=== PATIENT | male | born 1985 | race African-American/Black ===

== ENCOUNTER 2024-10-04 17:51 | Inpatient (IN) | payer OTHER ==
[~2024-10-04] VITALS: Ht 180.3 cm; Wt 77.3 kg
[2024-10-04] MEDS ORDERED: NAPR-1025 PO (19:55)
[2024-10-04] MEDS ORDERED: CEPH250S56 PO (19:55)
[2024-10-04] MEDS ORDERED: [UNRECOGNIZED DRUG - CODE] TP (19:55)
[2024-10-04] MEDS ORDERED: SENN-376 PO (19:55)
[2024-10-04] MEDS ORDERED: ACET-2247 PO (19:55)
[2024-10-04 22:04] LABS: BASOPHILS % (AUTO) 1.2 % (0.0-2.0); EOSINOPHILS % (AUTO) 5.5 % (1.0-6.0); HEMATOCRIT 45.3 % (41-53); HEMOGLOBIN 14.7 g/dL (13.5-17.5); LYMPHOCYTES # (AUTO) 2.4 K/uL (1.0-4.8); MEAN CORPUSCULAR HEMOGLOBIN 29.8 pg (26.0-34.0); MEAN CORPUSCULAR HGB CONC 32.5 G/dL (31.0-37.0); MEAN CORPUSCULAR VOLUME 92 fL (80-100); MONOCYTES # (AUTO) 0.8 K/uL (0.1-1.0); MONOCYTES % (AUTO) 10.3 % (2.0-9.0); NEUTROPHILS # (AUTO) 4.2 K/uL (1.8-7.7); PLATELET COUNT (AUTO) 292 K/uL (150-450); RED BLOOD CELL COUNT(AUTO) 4.95 MIL/uL (4.50-5.90); RED CELL DISTRIBUTION WIDTH 13.1 % (11.5-14.5); WHITE BLOOD COUNT (AUTO) 7.9 K/uL (4.5-11.0)
[2024-10-04 22:26] LABS: RBC MORPHOLOGY COMMENT NORMAL RBC MORPH
[2024-10-04 22:51] LABS: ANION GAP 3 mmol/L (8-16); CALCIUM, TOTAL 9.2 mg/dL (8.8-10.5); CARBON DIOXIDE 33 mmol/L (22-29); CHLORIDE 102 mmol/L (98-107); CREATININE 0.84 mg/dL (0.60-1.30); GLOMERULAR FILTR. RATE CALC > 60 mL/min (>60); GLUCOSE,RANDOM 66 mg/dL (70-110); POTASSIUM 4.6 mmol/L (3.5-5.1); SODIUM SERUM 138 mmol/L (136-145); UREA NITROGEN, BLOOD 14 mg/dL (7-18)
[2024-10-04] MEDS ORDERED: ONDANSETRON HCL 4 MG/2 ML VIAL IVP PRN (23:15)
[2024-10-05] MEDS: CLINDAMYCIN 600 MG/D5% WATER 50 ML IV ONE (00:08)
[2024-10-05] MEDS: KETOROLAC TROMETHAMINE 30 MG/ML VIAL IVP ONE (00:08)
[2024-10-05] MEDS: ACETAMINOPHEN 500 MG TABLET PO ONE (00:08)
[2024-10-05] MEDS: VANCOMYCIN 1.25 GM/WATER(PEG) 250 ML IV ONE (00:45)
[2024-10-05] MEDS: HEPARIN SODIUM,PORCINE 5,000 UNITS/ML VIAL SQ SCH (00:55)
[2024-10-05] MEDS ORDERED: SODIUM CHLORIDE 0.9% 500 ML IV ONE (02:47)
[2024-10-05 03:05] VITALS: BP 122/56; PULSE 72; RESP 18; TEMP 97.8; O2SAT 98
[2024-10-05 06:49] LABS: ANION GAP 5 mmol/L (8-16); CARBON DIOXIDE 29 mmol/L (22-29); CHLORIDE 103 mmol/L (98-107); CREATININE 0.83 mg/dL (0.60-1.30); GLOMERULAR FILTR. RATE CALC > 60 mL/min (>60); GLUCOSE,RANDOM 98 mg/dL (70-110); POTASSIUM 4.2 mmol/L (3.5-5.1); SODIUM SERUM 137 mmol/L (136-145); UREA NITROGEN, BLOOD 15 mg/dL (7-18)
[2024-10-05 07:15] LABS: BASOPHILS % (AUTO) 2.4 % (0.0-2.0); EOSINOPHILS % (AUTO) 6.9 % (1.0-6.0); HEMATOCRIT 42.6 % (41-53); HEMOGLOBIN 13.9 g/dL (13.5-17.5); LYMPHOCYTES # (AUTO) 1.8 K/uL (1.0-4.8); LYMPHOCYTES % (AUTO) 28.5 % (22.0-44.0); MEAN CORPUSCULAR HEMOGLOBIN 30.1 pg (26.0-34.0); MEAN CORPUSCULAR HGB CONC 32.7 G/dL (31.0-37.0); MEAN CORPUSCULAR VOLUME 92 fL (80-100); MONOCYTES # (AUTO) 0.5 K/uL (0.1-1.0); MONOCYTES % (AUTO) 8.3 % (2.0-9.0); NEUTROPHILS # (AUTO) 3.4 K/uL (1.8-7.7); NEUTROPHILS % (AUTO) 53.9 % (40.0-70.0); PLATELET COUNT (AUTO) 299 K/uL (150-450); RED BLOOD CELL COUNT(AUTO) 4.63 MIL/uL (4.50-5.90); RED CELL DISTRIBUTION WIDTH 12.9 % (11.5-14.5); WHITE BLOOD COUNT (AUTO) 6.3 K/uL (4.5-11.0)
[2024-10-05 07:42] VITALS: BP 129/83; PULSE 72; RESP 20; TEMP 97.6; O2SAT 99
[2024-10-05] MEDS: VANCOMYCIN 1.25 GM/WATER(PEG) 250 ML IV SCH (09:05)
[2024-10-05] MEDS: DOCUSATE SODIUM 100 MG CAPSULE PO SCH (09:07)
[2024-10-05] MEDS: ACETAMINOPHEN/CODEINE 300-30 MG TABLET PO PRN (12:26)
[2024-10-05 12:50] LABS: URIC ACID 5.2 mg/dL (2.6-7.2)
[2024-10-05 19:55] VITALS: BP 114/71; PULSE 75; RESP 20; TEMP 97.5; O2SAT 97
[2024-10-05] MEDS ORDERED: SODIUM CHLORIDE 0.9% 100 ML ONE (21:13)
[2024-10-05] MEDS ORDERED: 0.9% SODIUM CHLORIDE 10 ML SYRINGE IVP ONE (21:13)
[2024-10-05] MEDS ORDERED: IOHEXOL 350 MG/ML 100 ML VIAL ONE (21:13)
[2024-10-06 05:57] VITALS: BP 111/71; PULSE 69; RESP 20; TEMP 97.5; O2SAT 98
[2024-10-06 07:12] LABS: ANION GAP 6 mmol/L (8-16); CALCIUM, TOTAL 9.1 mg/dL (8.8-10.5); CARBON DIOXIDE 29 mmol/L (22-29); CHLORIDE 102 mmol/L (98-107); CREATININE 0.92 mg/dL (0.60-1.30); GLOMERULAR FILTR. RATE CALC > 60 mL/min (>60); GLUCOSE,RANDOM 85 mg/dL (70-110); POTASSIUM 4.3 mmol/L (3.5-5.1); SODIUM SERUM 137 mmol/L (136-145); UREA NITROGEN, BLOOD 12 mg/dL (7-18); VANCOMYCIN,RANDOM 13.8 mcg/mL (25.0-50.0)
[2024-10-06 08:00] VITALS: BP 107/66; PULSE 64; RESP 15; TEMP 97.9; O2SAT 100
[2024-10-06 19:44] VITALS: BP 117/70; PULSE 66; RESP 20; TEMP 98.2; O2SAT 98
[2024-10-06] MEDS: ACETAMINOPHEN 325 MG TABLET PO PRN (23:39)
[2024-10-07 04:58] VITALS: BP 114/78; PULSE 63; RESP 20; TEMP 98.1; O2SAT 100
[2024-10-07] MEDS ORDERED: FentaNYL CITRATE PF 100 MCG/2 ML VIAL ONE (07:00)
[2024-10-07] MEDS ORDERED: MIDAZOLAM HCL 2 MG/2 ML VIAL ONE (07:00)
[2024-10-07 07:15] LABS: ANION GAP 6 mmol/L (8-16); CARBON DIOXIDE 29 mmol/L (22-29); CHLORIDE 100 mmol/L (98-107); CREATININE 0.87 mg/dL (0.60-1.30); GLOMERULAR FILTR. RATE CALC > 60 mL/min (>60); GLUCOSE,RANDOM 95 mg/dL (70-110); SODIUM SERUM 135 mmol/L (136-145); UREA NITROGEN, BLOOD 12 mg/dL (7-18)
[2024-10-07 07:35] LABS: VANCOMYCIN,RANDOM 10.6 mcg/mL (25.0-50.0)
[2024-10-07 08:03] VITALS: BP 108/67; PULSE 62; RESP 18; TEMP 97.9; O2SAT 100
[2024-10-07] MEDS: VANCOMYCIN 1GM/WATER(PEG/NADA) 200 ML IV SCH (09:54)
[2024-10-07 20:19] VITALS: BP 113/71; PULSE 70; RESP 20; TEMP 97.9; O2SAT 97
[2024-10-08 04:57] VITALS: BP 102/71; PULSE 65; RESP 20; TEMP 97.8; O2SAT 98
[2024-10-08 07:17] LABS: ANION GAP 7 mmol/L (8-16); CALCIUM, TOTAL 8.9 mg/dL (8.8-10.5); CARBON DIOXIDE 28 mmol/L (22-29); CHLORIDE 101 mmol/L (98-107); GLOMERULAR FILTR. RATE CALC > 60 mL/min (>60); GLUCOSE,RANDOM 97 mg/dL (70-110); POTASSIUM 3.9 mmol/L (3.5-5.1); SODIUM SERUM 136 mmol/L (136-145); UREA NITROGEN, BLOOD 12 mg/dL (7-18)
[2024-10-08] MEDS ORDERED: ACETAMINOPHEN 325 MG TABLET PO PRN (09:15)
[2024-10-08] MEDS ORDERED: RINGERS SOLUTION,LACTATED 1,000 ML IV ONE (09:21)
[2024-10-08] MEDS ORDERED: SODIUM CL IRRIG SOLN BAG 3,000 ML IRRIG ONE (09:27)
[2024-10-08] MEDS ORDERED: MORPHINE SULFATE 2 MG/ML SYRINGE ONE (10:14)
[2024-10-08] MEDS: MORPHINE SULFATE 2 MG/ML SYRINGE IVP PRN (10:15)
[2024-10-08] MEDS: BUPIVACAINE HCL/PF 0.25% 30 ML VIAL ONE (10:25)
[2024-10-08] MEDS ORDERED: ACETAMINOPHEN 1000 MG/ISO-OSM 100 ML IV ONE (11:02)
[2024-10-08] MEDS: HYDROGEN PEROXIDE 473 ML SOLUTION ONE (11:06)
[2024-10-08] MEDS: ACETAMINOPHEN 1000 MG/ISO-OSM 100 ML IV ONE (11:07)
[2024-10-08] MEDS: MUPIROCIN CALCIUM 2% 22 GM OINTMENT ONE (11:10)
[2024-10-08] MEDS: CeFAZolin 1 GM/DEXTROSE 50 ML IV SCH (12:54)
[2024-10-08 19:47] VITALS: BP 112/70; PULSE 64; RESP 18; TEMP 98.2; O2SAT 94
[2024-10-09 03:19] VITALS: BP 102/59; PULSE 65; RESP 18; TEMP 97.7; O2SAT 99
[2024-10-09 07:15] LABS: ANION GAP 7 mmol/L (8-16); CALCIUM, TOTAL 9.4 mg/dL (8.8-10.5); CARBON DIOXIDE 28 mmol/L (22-29); CHLORIDE 101 mmol/L (98-107); CREATININE 0.86 mg/dL (0.60-1.30); GLOMERULAR FILTR. RATE CALC > 60 mL/min (>60); GLUCOSE,RANDOM 99 mg/dL (70-110); POTASSIUM 4.2 mmol/L (3.5-5.1); SODIUM SERUM 135 mmol/L (136-145); UREA NITROGEN, BLOOD 11 mg/dL (7-18)
[2024-10-09 07:54] LABS: VANCOMYCIN,RANDOM 15.7 mcg/mL (25.0-50.0)
[2024-10-09 08:10] VITALS: BP 116/71; PULSE 53; RESP 18; TEMP 97.8; O2SAT 99
[2024-10-09 16:17] VITALS: BP 114/66; PULSE 57; RESP 17; TEMP 98; O2SAT 98
[2024-10-09 20:02] VITALS: BP 112/59; PULSE 56; RESP 18; TEMP 98.2; O2SAT 100
[2024-10-10 03:32] VITALS: BP 105/73; PULSE 55; RESP 18; TEMP 97.4; O2SAT 98
[2024-10-10 07:45] LABS: ANION GAP 5 mmol/L (8-16); CALCIUM, TOTAL 9.2 mg/dL (8.8-10.5); CARBON DIOXIDE 29 mmol/L (22-29); CHLORIDE 101 mmol/L (98-107); CREATININE 0.81 mg/dL (0.60-1.30); GLOMERULAR FILTR. RATE CALC > 60 mL/min (>60); GLUCOSE,RANDOM 92 mg/dL (70-110); POTASSIUM 4.5 mmol/L (3.5-5.1); SODIUM SERUM 135 mmol/L (136-145); UREA NITROGEN, BLOOD 11 mg/dL (7-18)
[2024-10-10 08:33] VITALS: BP 99/58; PULSE 65; RESP 18; TEMP 98; O2SAT 97
[2024-10-10 12:38] LABS: BASOPHILS % (AUTO) 0.3 % (0.0-2.0); HEMOGLOBIN 15.1 g/dL (13.5-17.5); LYMPHOCYTES # (AUTO) 1.7 K/uL (1.0-4.8); LYMPHOCYTES % (AUTO) 25.7 % (22.0-44.0); MEAN CORPUSCULAR HEMOGLOBIN 29.9 pg (26.0-34.0); MEAN CORPUSCULAR HGB CONC 32.8 G/dL (31.0-37.0); MEAN CORPUSCULAR VOLUME 91 fL (80-100); MONOCYTES # (AUTO) 0.6 K/uL (0.1-1.0); MONOCYTES % (AUTO) 9.5 % (2.0-9.0); NEUTROPHILS # (AUTO) 3.9 K/uL (1.8-7.7); NEUTROPHILS % (AUTO) 58.5 % (40.0-70.0); PLATELET COUNT (AUTO) 283 K/uL (150-450); RED BLOOD CELL COUNT(AUTO) 5.05 MIL/uL (4.50-5.90); RED CELL DISTRIBUTION WIDTH 12.8 % (11.5-14.5); WHITE BLOOD COUNT (AUTO) 6.7 K/uL (4.5-11.0)
[2024-10-10] MEDS ORDERED: 0.9% SODIUM CHLORIDE 10 ML SYRINGE IVP ONE (16:08)
[2024-10-10] MEDS ORDERED: IOHEXOL 300 MG/ML 100 ML VIAL ONE (16:08)
[2024-10-10] MEDS ORDERED: SODIUM CHLORIDE 0.9% 100 ML ONE (16:08)
[2024-10-10 19:56] VITALS: BP 112/60; PULSE 61; RESP 18; TEMP 98.1; O2SAT 98
[2024-10-10] MEDS: LACTULOSE 20 GM/30 ML SOLUTION UDCUP PO ONE (23:30)
[2024-10-11 04:32] VITALS: BP 101/57; PULSE 58; RESP 18; TEMP 98; O2SAT 96
[2024-10-11 07:51] LABS: ANION GAP 7 mmol/L (8-16); CALCIUM, TOTAL 9.1 mg/dL (8.8-10.5); CARBON DIOXIDE 27 mmol/L (22-29); CHLORIDE 101 mmol/L (98-107); CREATININE 0.81 mg/dL (0.60-1.30); GLOMERULAR FILTR. RATE CALC > 60 mL/min (>60); GLUCOSE,RANDOM 86 mg/dL (70-110); POTASSIUM 4.1 mmol/L (3.5-5.1); SODIUM SERUM 135 mmol/L (136-145); UREA NITROGEN, BLOOD 12 mg/dL (7-18)
[2024-10-11 08:04] VITALS: BP 116/71; PULSE 64; RESP 19; TEMP 98.1; O2SAT 100
[2024-10-11 08:04] LABS: VANCOMYCIN,RANDOM 19.1 mcg/mL (25.0-50.0)
[2024-10-11] MEDS: BISACODYL 10 MG RECTAL RECTAL SUPPOSITORY PR ONE (13:53)
[2024-10-11] MEDS ORDERED: LIDO120C7 TP (15:21)
[2024-10-11] MEDS ORDERED: BUSP15 PO (15:21)
[2024-10-11] MEDS ORDERED: CHLO10TA19 PO (15:21)
[2024-10-11] MEDS ORDERED: LURA40TA2 PO (15:21)
[2024-10-11] MEDS ORDERED: HYDR-4808 PO (15:21)
[2024-10-11] MEDS: MAGNESIUM CITRATE [LEMON] 300 ML ORAL SOLUTION PO ONE (15:52)
[2024-10-11 16:36] VITALS: BP 107/66; PULSE 60; RESP 18; TEMP 98.2; O2SAT 99
[2024-10-11 20:06] VITALS: BP 108/61; PULSE 62; RESP 18; TEMP 97.7; O2SAT 97
[2024-10-11] MEDS: VANCOMYCIN 1.25 GM/WATER(PEG) 250 ML IV SCH (20:07)
[2024-10-11] MEDS: PEG 3350/NA SULF,BICARB,CL/KCL 4000 ML SOLUTION PO ONE (20:07)
[2024-10-12 05:04] VITALS: BP 106/65; PULSE 63; RESP 18; TEMP 98.1; O2SAT 99
[2024-10-12 07:10] LABS: ANION GAP 5 mmol/L (8-16); CALCIUM, TOTAL 9.3 mg/dL (8.8-10.5); CARBON DIOXIDE 30 mmol/L (22-29); CHLORIDE 100 mmol/L (98-107); CREATININE 0.82 mg/dL (0.60-1.30); GLOMERULAR FILTR. RATE CALC > 60 mL/min (>60); GLUCOSE,RANDOM 94 mg/dL (70-110); POTASSIUM 4.3 mmol/L (3.5-5.1); SODIUM SERUM 135 mmol/L (136-145); UREA NITROGEN, BLOOD 13 mg/dL (7-18)
[2024-10-12 07:25] VITALS: BP 136/68; PULSE 59; RESP 17; TEMP 98.5; O2SAT 96
[2024-10-12] MEDS ORDERED: DOCU-385 PO (12:04)
[2024-10-12] MEDS ORDERED: DOXY-354 PO (12:05)
== END 2024-10-12 20:11 | DRG 501 ==
LOC: EMS 17:56 → EDH 23:29 → 6S 10-05 02:35
PROVIDERS: ADMIT Internal Medicine; ATTEND Internal Medicine
PROC: 0MB30ZZ Excision of Right Elbow Bursa and Ligament, Open Approach (ICD-10-PCS; principal; 2024-10-08 10:00)
DX: M71.121 Other infective bursitis, right elbow (principal); E87.3 Alkalosis; L03.113 Cellulitis of right upper limb; E16.2 Hypoglycemia, unspecified; F41.9 Anxiety disorder, unspecified; F90.9 Attention-deficit hyperactivity disorder, unspecified type; R07.89 Other chest pain; K59.00 Constipation, unspecified; Z90.81 Acquired absence of spleen; Z88.8 Allergy status to other drugs, medicaments and biological substances; Z79.899 Other long term (current) drug therapy
CPT/HCPCS: 29105; 73201; 74177; 80048; 80202; 83605; 83735; 84550; 85025; 87040; 87070; 87101; 87205; 97161; 97166; 97535; 99285; G0378; J0131; J0690; J1644; J1885; J2250; J2270; J3010; J3490; J7040; J7050; J7120; Q9967; 36415-L1; 36415-TC; Z7610